=== PATIENT | female | born 1980 | race Hispanic/Latino ===

== ENCOUNTER 2021-12-21 20:25 | Emergency (ER) | payer OTHER ==
[2021-12-21] MEDS ORDERED: Metoclopramide HCl 10 MG/2 ML VIAL ONE (21:17)
[2021-12-21] MEDS ORDERED: diphenhydrAMINE 50 MG/ML VIAL ONE (21:17)
[2021-12-21] MEDS ORDERED: Ketorolac Tromethamine 30 MG/ML VIAL ONE (21:18)
[2021-12-21 22:03] LABS: SARS-CoV-2 NAA Rapid Test Not Detected (NotDetected)
== END 2021-12-21 22:32 | disposition home or self-care (01) ==
LOC: CSHERS 20:25
DX: B34.9 Viral infection, unspecified (principal); R51.9 Headache, unspecified; Z20.822 Contact with and (suspected) exposure to COVID-19
CPT/HCPCS: 96374; 96375; J1200; J1885; J2765

== ENCOUNTER 2022-04-06 00:35 | Emergency (ER) | payer OTHER ==
[2022-04-07] MEDS ORDERED: Clindamycin 150 MG CAP ONE (04:19)
[2022-04-07] MEDS ORDERED: traMADol HCl 50 MG TAB ONE (04:21)
[2022-04-07] MEDS ORDERED: Scopolamine 1.5 mg/72 hour Patch ONE (10:19)
[2022-04-07] MEDS ORDERED: CEFAZOLIN 2 GM VIAL ONE (10:19)
== END 2022-04-06 03:13 | disposition left against medical advice (07) ==
LOC: CSHERS 00:35
DX: Z53.21 Procedure and treatment not carried out due to patient leaving prior to being seen by health care provider (principal)

== ENCOUNTER 2022-04-07 03:41 | Emergency (ER) | payer OTHER | END 2022-04-07 04:50 | disposition home or self-care (01) | LOC: CSHERS 03:41 | DX: K04.7 Periapical abscess without sinus (principal); F17.290 Nicotine dependence, other tobacco product, uncomplicated; F17.200 Nicotine dependence, unspecified, uncomplicated | CPT/HCPCS: 99283 ==

== ENCOUNTER 2022-12-06 02:15 | Emergency (ER) | payer OTHER ==
[2022-12-06] MEDS ORDERED: Ondansetron PF 4 MG/2 ML Vial ONE (03:21)
[2022-12-06] MEDS ORDERED: Morphine 4 MG/ML VIAL ONE (03:21)
[2022-12-06 03:59] LABS: #Eosinphils 0.2 10x3/uL (0.0-0.5); #Neutrophils 6.4 10x3/uL (1.5-8.4); %Basophils 0.4 % (0.0-2.0); %Eosinophils 2.1 % (0.0-6.0); %Lymphocytes 20.2 % (18.0-47.0); %Monocytes 10.4 % (0.0-10.0); %Neutrophils 66.7 % (40.0-75.0); Hematocrit 36.7 % (34.9-44.5); Hemoglobin 11.4 g/dL (12.0-15.5); Mean Corpuscular HGB CONC 31.1 g/dL (32.0-36.0); Mean Corpuscular Hemoglobin 24.1 pg (27.0-33.0); Mean Corpuscular Volume 77.6 fl (81.6-98.3); Mean Platelet Volume 8.8 fl (7.4-10.4); Platelet Count 406 10x3/uL (150-450); RBC Distribution Width 15.4 % (11.5-14.5); Red Blood Cell (RBC) Count 4.73 10x6/uL (3.90-5.03); White Blood Cell (WBC) Count 9.6 10x3/uL (3.5-10.5)
[2022-12-06 04:08] LABS: BHCG - Serum Negative (NEGATIVE); Pregs Control Background? CLEAR/WHITE (CLR/WHITE); Pregs Control Bar Appear? YES (CONTROL BAR)
[2022-12-06 04:18] LABS: ALT (SGPT) 14 U/L (8-55); AST (SGOT) 10 U/L (5-34); Albumin 3.9 g/dL (3.5-5.0); Alkaline Phosphatase 68 U/L (40-110); Anion Gap 12 mmol/L (10-20); BUN (Urea Nitrogen) 17 mg/dL (7.0-18.7); Bilirubin, Total 0.2 mg/dL (0.2-1.2); Calc. Creatinine Clearance 0 mL/min (70-130); Calcium 8.9 mg/dL (7.8-10.44); Carbon Dioxide 24 mmol/L (22-29); Chloride 108 mmol/L (98-107); Estimated GFR 94; Glucose 98 mg/dL (70-105); Potassium 4.9 mmol/L (3.5-5.1); Protein, Total 6.9 g/dL (6.0-8.3); Sodium 139 mmol/L (136-145)
[2022-12-06] MEDS ORDERED: Ketorolac Tromethamine 30 MG/ML VIAL ONE (04:38)
[2022-12-06] MEDS ORDERED: Iopamidol 300 61% 100 ML VIAL FS ONE (09:03)
== END 2022-12-06 06:33 | disposition left against medical advice (07) ==
LOC: CSHERS 02:15
DX: K04.7 Periapical abscess without sinus (principal); L03.211 Cellulitis of face; F17.210 Nicotine dependence, cigarettes, uncomplicated
CPT/HCPCS: 36415; 70487; 80053; 84703; 85025; 96374; 96375; J1885; J2270; J2405; Q9967

== ENCOUNTER 2023-01-17 21:53 | Emergency (ER) | payer OTHER ==
[2023-01-17] MEDS ORDERED: diphenhydrAMINE 50 MG/ML VIAL ONE (22:54)
[2023-01-17] MEDS ORDERED: Metoclopramide HCl 10 MG/2 ML VIAL ONE (22:55)
== END 2023-01-18 00:51 | disposition home or self-care (01) ==
LOC: CSHERS 21:53
DX: G43.909 Migraine, unspecified, not intractable, without status migrainosus (principal); F17.210 Nicotine dependence, cigarettes, uncomplicated
CPT/HCPCS: 96365; 96375; J1200; J2765